=== PATIENT | female | born 1975 | race African-American/Black ===

== ENCOUNTER → 2018-02-21 | Outpatient (CLI) | payer OTHER ==
--- NOTE | 2018-02-21 15:31 | RAD ---
EXAM: Pelvic sonogram. HISTORY: Right lower quadrant pain. TECHNIQUE: Sonographic imaging of the pelvis was performed. COMPARISON: None. FINDINGS: The uterus measures 10.8 x 5.9 x 4.0 cm. The endometrial stripe measures 10 mm in thickness. There is trace fluid within the endometrial cavity. There is a small nabothian cyst within the cervix. The right ovary is normal in size and demonstrates normal blood flow. There is a 1.8 cm complicated right ovarian cyst, the appearance of which favors a hemorrhagic cyst. The left ovary is surgically absent. There is trace pelvic free fluid. There is a fibroid within the lower uterine segment measuring 2.7 cm. IMPRESSION: 1. 1.8 cm complicated right ovarian cyst, likely hemorrhagic in etiology. 2. 2.7 cm uterine fibroid and small nabothian cyst within the cervix. 3. Normal endometrial thickness for the premenopausal status of the patient. 4. Trace pelvic free fluid. Electronically signed by: Carmella Streeter MD (02/21/2018 3:27 PM) [id number]
== END | disposition home or self-care (01) ==
LOC: US 14:01
PROVIDERS: ATTEND Family Medicine
DX: N28.1 Cyst of kidney, acquired (principal); D25.9 Leiomyoma of uterus, unspecified; N88.8 Other specified noninflammatory disorders of cervix uteri
CPT/HCPCS: 76830; 76856